=== PATIENT | male | born 1975 | race Caucasian/White ===

== ENCOUNTER 2020-06-04 17:40 | Inpatient (IN) | payer MEDICAID ==
[~2020-06-04] VITALS: Ht 175.3 cm; Wt 101.5 kg
[2020-06-04 18:36] LABS: BASOPHILS % 0.6 % (0.0-2.0); EOSINOPHILS % 1.4 % (0.0-5.0); HEMATOCRIT. 42.8 % (42.0-52.0); HEMOGLOBIN. 15.1 g/dL (14.0-18.0); LYMPHOCYTES % 22.1 % (20.0-50.0); MEAN CORPUSCULAR HEMOGLOBIN 28.6 pg (28.0-32.0); MEAN PLATELET VOLUME 8.6 fl (7.4-10.4); MONOCYTES % 5.7 % (2.0-8.0); NEUTROPHILS % 70.2 % (40.0-76.0); PLATELET 174 x1000/uL (130-400); RED BLOOD CELL COUNT 5.28 mill/uL (4.7-6.1)
[2020-06-04 18:44] LABS: CHLORIDE 103 mEq/L (98-107)
[2020-06-04 18:48] LABS: ETHANOL BLOOD < 10 mg/dL
[2020-06-04 20:18] LABS: CLARITY URINE CLEAR (CLEAR); COLOR URINE YELLOW (YELLOW); KETONES URINE NEGATIVE (NEGATIVE); LEUKOCYTE ESTERASE URINE 2+ (NEGATIVE); NITRITE URINE NEGATIVE (NEGATIVE); OCCULT BLOOD URINE NEGATIVE (NEGATIVE); PROTEIN URINE NEGATIVE (NEGATIVE); SPECIFIC GRAVITY URINE 1.024 (1.005-1.030); UROBILINOGEN URINE 0.2 E.U./dL (0.2-1.0)
[2020-06-04 20:38] LABS: *AMPHETAMINES SCREEN URINE NEGATIVE (NEGATIVE); *BARBITURATES SCREEN URINE NEGATIVE (NEGATIVE); *BENZODIAZEPINES SCREEN URINE NEGATIVE (NEGATIVE)
[2020-06-04 20:39] LABS: *COCAINE SCREEN URINE NEGATIVE (NEGATIVE); CANNABINOID URINE SCREEN NEGATIVE (NEGATIVE); METHADONE URINE SCREEN NEGATIVE (NEGATIVE); OPIATES URINE SCREEN NEGATIVE (NEGATIVE); PHENCYCLIDINE URINE SCREEN NEGATIVE (NEGATIVE)
[2020-06-04] MEDS ORDERED: ASPIRIN 325MG TABLET PO ONE (21:15)
[2020-06-04] MEDS ORDERED: ASPIRIN 600MG SUPP PR ONE (22:00)
[2020-06-05 09:30] VITALS: BP 149/88
[2020-06-05 10:00] VITALS: BP 144/88
[2020-06-05 12:25] VITALS: BP 136/80
[2020-06-05] MEDS: SODIUM CHLORIDE 0.9% 1,000 ML IV SCH ×2 (12:32→23:33)
[2020-06-05 13:07] LABS: BASOPHILS % 0.5 % (0.0-2.0); HEMATOCRIT. 41.8 % (42.0-52.0); HEMOGLOBIN. 14.6 g/dL (14.0-18.0); LYMPHOCYTES % 7.4 % (20.0-50.0); MEAN CORPUSCULAR HEMOGLOBIN 28.1 pg (28.0-32.0); MEAN CORPUSCULAR VOLUME 80.4 fL (80.0-94.0); MEAN PLATELET VOLUME 8.6 fl (7.4-10.4); MONOCYTES % 4.9 % (2.0-8.0); NEUTROPHILS % 87.2 % (40.0-76.0); PLATELET 184 x1000/uL (130-400); RED CELL DISTRIBUTION WIDTH 13.9 % (11.6-14.6)
[2020-06-05 13:12] LABS: CHLORIDE 102 mEq/L (98-107)
[2020-06-05 13:21] LABS: LDL CHOLESTEROL 126 mg/dL (5-100)
[2020-06-05 13:24] LABS: HDL CHOLESTEROL 58 mg/dL (40-59)
[2020-06-05] MEDS ORDERED: ACET-2708 PO (15:26)
[2020-06-05 16:12] VITALS: BP 139/79
[2020-06-05 18:36] LABS: T4 FREE 1.33 ng/dL (0.76-1.46)
[2020-06-05 18:38] LABS: FOLIC ACID (FOLATE) SERUM 17.2 ng/mL (>5.38)
[2020-06-05] MEDS ORDERED: ATORVASTATIN CALCIUM 40MG TABLET PO SCH (21:00)
[2020-06-05] MEDS: ACETAMINOPHEN 650MG/20.3ML UDC NG PRN (21:24)
[2020-06-05] MEDS: ATORVASTATIN CALCIUM 40MG TABLET NG SCH (21:24)
[2020-06-05 21:51] VITALS: BP 141/70
[2020-06-06] VITALS (172 sets, daily range): BP systolic 84–189; BP diastolic 20–136
[2020-06-06] MEDS ORDERED: LORAZEPAM 2MG/ML CPJ IV SCH (07:30)
[2020-06-06] MEDS ORDERED: ENOXAPARIN 30MG/0.3ML SYR SUBCUT SCH (09:00)
[2020-06-06] MEDS ORDERED: CEFEPIME HCL 1000MG/VIAL INJ IM SCH (09:00)
[2020-06-06] MEDS ORDERED: CLOPIDOGREL 75MG TABLET PO SCH (09:00)
[2020-06-06] MEDS: FAMOTIDINE 20MG/2ML VIAL IV SCH ×2 (09:04→20:01)
[2020-06-06 09:59] LABS: BG BASE EXCESS -3.5 mmol/L (-2.0-2.0); BG CARBOXYHEMOGLOBIN 0.3 % (0.5-1.5); BG DEOXYHEMOGLOBIN 0.5 % (0.0-5.0); BG FRACTION INSPIRED OXYGEN 100; BG HCO3 ACT 19.9 mmol/L (22.0-26.0); BG METHEMOGLOBIN 0.1 % (0.0-1.5); BG OXYGEN SATURATION 99.5 % (92.0-98.5); BG OXYHEMOGLOBIN 99.1 % (94.0-97.0); BG PCO2 31.9 mmHg (35.0-45.0); BG PH 7.413 (7.350-7.450); BG PO2 376.3 mmHg (75.0-100.0); BG SAMPLE SITE RIGHT RADIAL; BG TOTAL HEMOGLOBIN 15.5 g/dL (12.0-18.0); BG TOTAL RESPIRATORY RATE 30 b/min; BG VENT MODE VENT - AC
[2020-06-06] MEDS ORDERED: BACITRACIN 50,000 UNITS/VIAL ONE (11:15)
[2020-06-06] MEDS ORDERED: MANNITOL 20% 0 ML IV ONE (11:15)
[2020-06-06] MEDS ORDERED: BACITRACIN 15GM TUBE TOP ONE (11:15)
[2020-06-06] MEDS ORDERED: LEVETIRACETAM 500MG PREMIX 100 ML IV ONE (11:16)
[2020-06-06] MEDS ORDERED: ESMOLOL 2500MG PREMIX 0 ML IV ONE (11:24)
[2020-06-06] MEDS ORDERED: NICARDIPINE 40MG/200ML PREMIX 200 ML IV ONE (11:24)
[2020-06-06] MEDS ORDERED: THROMBIN (BOVINE) 5000 UNITS/VIAL TOP ONE (11:24)
[2020-06-06] MEDS ORDERED: PROPOFOL 200MG/20ML VIAL IV ONE (11:26)
[2020-06-06] MEDS ORDERED: VECURONIUM BROMIDE 10 MG/VIAL IV ONE (11:27)
[2020-06-06] MEDS ORDERED: SODIUM CHLORIDE 0.9% 10ML VIAL ONE ×2 (11:28→11:29)
[2020-06-06] MEDS ORDERED: CEFAZOLIN SODIUM 1000MG/VIAL ONE (11:29)
[2020-06-06] MEDS ORDERED: PHENYLEPHRINE HCL 10 MG/ML 1ML (IV VIAL) IV ONE (11:32)
[2020-06-06] MEDS ORDERED: LABETALOL HCL 5MG/ML VIAL 20ML IV ONE (11:45)
[2020-06-06] MEDS ORDERED: LEVETIRACETAM 500 MG in SODIUM CHLORIDE 0.9% 100 ML IV SCH (11:45)
[2020-06-06] MEDS ORDERED: FENTANYL CITRATE/PF 50MCG/ML 2ML VIAL ONE ×2 (12:59→13:12)
[2020-06-06 13:10] LABS: BG CARBOXYHEMOGLOBIN 0.3 % (0.5-1.5); BG DEOXYHEMOGLOBIN 0.8 % (0.0-5.0); BG FRACTION INSPIRED OXYGEN 100; BG HCO3 ACT 17.6 mmol/L (22.0-26.0); BG METHEMOGLOBIN 0.3 % (0.0-1.5); BG OXYGEN SATURATION 99.2 % (92.0-98.5); BG OXYHEMOGLOBIN 98.6 % (94.0-97.0); BG PCO2 27.2 mmHg (35.0-45.0); BG SAMPLE SITE ALINE; BG TOTAL HEMOGLOBIN 14.5 g/dL (12.0-18.0)
[2020-06-06] MEDS ORDERED: PROPOFOL 10MG/ML 100ML 100 ML IV ONE (13:16)
[2020-06-06] MEDS: SODIUM CHLORIDE 0.9% 1,000 ML IV SCH (13:25)
[2020-06-06] MEDS: DEXT 5%/LACTATED RINGERS 1,000 ML IV SCH (13:30)
[2020-06-06] MEDS ORDERED: NICARDIPINE 100 MG in SODIUM CHLORIDE 0.9% 60 ML IV PRN (13:30)
[2020-06-06] MEDS ORDERED: CEFAZOLIN SODIUM 1000MG/VIAL IV SCH (14:00)
[2020-06-06] MEDS: IPRATROPIUM/ALBUTEROL 0.5-3(2.5)MG/3ML NEB HHN SCH ×2 (14:06→21:06)
[2020-06-06] MEDS: LEVETIRACETAM 500MG PREMIX 100 ML IV SCH ×2 (15:00→20:01)
[2020-06-06] MEDS: MORPHINE SULFATE 4 MG/ML CPJ (NOT FOR IM USE) IV PRN (16:13)
[2020-06-06] MEDS: CEFEPIME 1,000 MG in DEXTROSE 5% WATER 50 ML IV SCH ×2 (16:14→20:02)
[2020-06-06 18:30] LABS: PROTHROMBIN TIME 10.8 sec (9.6-11.0)
[2020-06-06] MEDS: PROPOFOL 10MG/ML 100ML 100 ML IV PRN ×2 (18:59→20:09)
[2020-06-06 19:13] LABS: BASOPHILS % 0.2 % (0.0-2.0); HEMATOCRIT. 49.5 % (42.0-52.0); HEMOGLOBIN. 16.9 g/dL (14.0-18.0); LYMPHOCYTES % 8.7 % (20.0-50.0); MEAN CORPUSCULAR HEMOGLOBIN 28.3 pg (28.0-32.0); MEAN CORPUSCULAR VOLUME 83.1 fL (80.0-94.0); MEAN PLATELET VOLUME 8.9 fl (7.4-10.4); MONOCYTES % 12.9 % (2.0-8.0); NEUTROPHILS % 78.2 % (40.0-76.0); PLATELET 181 x1000/uL (130-400); RED BLOOD CELL COUNT 5.96 mill/uL (4.7-6.1); RED CELL DISTRIBUTION WIDTH 14.5 % (11.6-14.6)
[2020-06-06 19:16] LABS: CHLORIDE 116 mEq/L (98-107)
[2020-06-06] MEDS: ATORVASTATIN CALCIUM 40MG TABLET NG SCH (20:01)
[2020-06-06] MEDS: CEFAZOLIN 1000MG PREMIX 50 ML IV SCH (20:01)
[2020-06-07] VITALS (108 sets, daily range): BP systolic 37–245; BP diastolic 22–121
[2020-06-07] MEDS: IPRATROPIUM/ALBUTEROL 0.5-3(2.5)MG/3ML NEB HHN SCH ×4 (00:52→20:51)
[2020-06-07] MEDS: MORPHINE SULFATE 4 MG/ML CPJ (NOT FOR IM USE) IV PRN (00:57)
[2020-06-07] MEDS: ACETAMINOPHEN 650MG/20.3ML UDC NG PRN (01:35)
[2020-06-07] MEDS ORDERED: SODIUM CHLORIDE 0.9% 1,000 ML IV SCH (03:00)
[2020-06-07] MEDS ORDERED: DOPAMINE 400MG/250ML PREMIX 250 ML IV ONE (03:02)
[2020-06-07] MEDS: SODIUM CHLORIDE 0.9% 1,000 ML IV SCH (03:12)
[2020-06-07] MEDS: DOPAMINE 400MG/250ML PREMIX 250 ML IV PRN ×2 (03:12→08:37)
[2020-06-07] MEDS: CEFAZOLIN 1000MG PREMIX 50 ML IV SCH ×3 (03:26→19:48)
[2020-06-07 05:02] LABS: BASOPHILS % 0.2 % (0.0-2.0); EOSINOPHILS % 0.1 % (0.0-5.0); HEMATOCRIT. 41.4 % (42.0-52.0); HEMOGLOBIN. 14.1 g/dL (14.0-18.0); LYMPHOCYTES % 7.9 % (20.0-50.0); MEAN CORPUSCULAR HEMOGLOBIN 28.2 pg (28.0-32.0); MEAN CORPUSCULAR VOLUME 82.7 fL (80.0-94.0); MEAN PLATELET VOLUME 8.5 fl (7.4-10.4); MONOCYTES % 9.3 % (2.0-8.0); NEUTROPHILS % 82.5 % (40.0-76.0); PLATELET 136 x1000/uL (130-400); RED BLOOD CELL COUNT 5.01 mill/uL (4.7-6.1); RED CELL DISTRIBUTION WIDTH 14.5 % (11.6-14.6)
[2020-06-07 05:12] LABS: CHLORIDE 127 mEq/L (98-107)
[2020-06-07] MEDS: DEXT 5%/LACTATED RINGERS 1,000 ML IV SCH (06:10)
[2020-06-07 08:13] LABS: BG BASE EXCESS -7.6 mmol/L (-2.0-2.0); BG CARBOXYHEMOGLOBIN 0.3 % (0.5-1.5); BG DEOXYHEMOGLOBIN 1.5 % (0.0-5.0); BG HCO3 ACT 18.4 mmol/L (22.0-26.0); BG METHEMOGLOBIN 0.4 % (0.0-1.5); BG OXYGEN SATURATION 98.5 % (92.0-98.5); BG OXYHEMOGLOBIN 97.8 % (94.0-97.0); BG PCO2 39.1 mmHg (35.0-45.0); BG PH 7.291 (7.350-7.450); BG PO2 142.2 mmHg (75.0-100.0); BG SAMPLE SITE ALINE; BG TOTAL HEMOGLOBIN 14.9 g/dL (12.0-18.0); BG VENT MODE VENT - AC
[2020-06-07] MEDS: CEFEPIME 1,000 MG in DEXTROSE 5% WATER 50 ML IV SCH ×2 (08:37→20:52)
[2020-06-07] MEDS: FAMOTIDINE 20MG/2ML VIAL IV SCH ×2 (08:37→20:52)
[2020-06-07] MEDS: LEVETIRACETAM 500MG PREMIX 100 ML IV SCH ×2 (08:37→20:51)
[2020-06-07] MEDS ORDERED: DEXT 5%/0.45% NACL 1000ML 1,000 ML IV SCH (10:00)
[2020-06-07] MEDS ORDERED: POTASSIUM CHLORIDE INJ 40 MEQ in DEXT 5% WATER 250 ML IV SCH (11:00)
[2020-06-07] MEDS ORDERED: LIDOCAINE HCL 1% 20ML VIAL (Pyxis) INJ ONE (13:31)
[2020-06-07 13:41] LABS: BG BASE EXCESS -7.2 mmol/L (-2.0-2.0); BG CARBOXYHEMOGLOBIN 0.7 % (0.5-1.5); BG DEOXYHEMOGLOBIN 2.4 % (0.0-5.0); BG FRACTION INSPIRED OXYGEN 70; BG HCO3 ACT 17.5 mmol/L (22.0-26.0); BG METHEMOGLOBIN 0.4 % (0.0-1.5); BG OXYGEN SATURATION 97.6 % (92.0-98.5); BG OXYHEMOGLOBIN 96.5 % (94.0-97.0); BG PCO2 33.6 mmHg (35.0-45.0); BG PH 7.335 (7.350-7.450); BG PO2 97.9 mmHg (75.0-100.0); BG SAMPLE SITE ALINE; BG TOTAL HEMOGLOBIN 15.5 g/dL (12.0-18.0); BG VENT MODE VENT - AC
[2020-06-07] MEDS: DEXTROSE 5% WATER 1,000 ML IV SCH (14:56)
[2020-06-07] MEDS: NOREPINEPHRINE 32 MG in DEXT 5% WATER 218 ML IV PRN (16:23)
[2020-06-07] MEDS: KCL 20MEQ/100ML PREMIX 100 ML IV SCH ×3 (19:47→23:30)
[2020-06-07] MEDS ORDERED: KCL 20MEQ/100ML PREMIX 100 ML IV ONE ×2 (20:15→22:15)
[2020-06-07] MEDS: DESMOPRESSIN ACETATE 4MCG/ML AMP SUBCUT SCH (20:51)
[2020-06-07] MEDS: ATORVASTATIN CALCIUM 40MG TABLET NG SCH (20:52)
[2020-06-07] MEDS ORDERED: DESMOPRESSIN ACETATE 4MCG/ML AMP SUBCUT SCH ×2 (21:00)
[2020-06-08] VITALS (72 sets, daily range): BP systolic 36–135; BP diastolic 24–80
[2020-06-08 00:25] LABS: CHLORIDE 135 mEq/L (98-107)
[2020-06-08] MEDS ORDERED: KCL 20MEQ/100ML PREMIX 100 ML IV SCH ×3 (01:30→05:30)
[2020-06-08] MEDS: IPRATROPIUM/ALBUTEROL 0.5-3(2.5)MG/3ML NEB HHN SCH ×3 (02:37→13:24)
[2020-06-08] MEDS: DEXTROSE 5% WATER 1,000 ML IV SCH ×2 (04:27→12:47)
[2020-06-08 04:30] LABS: EOSINOPHILS % 0.5 % (0.0-5.0); HEMATOCRIT. 40.7 % (42.0-52.0); LYMPHOCYTES % 12.6 % (20.0-50.0); MEAN CORPUSCULAR HEMOGLOBIN 28.2 pg (28.0-32.0); MEAN CORPUSCULAR VOLUME 81.9 fL (80.0-94.0); MEAN PLATELET VOLUME 8.9 fl (7.4-10.4); MONOCYTES % 6.2 % (2.0-8.0); NEUTROPHILS % 79.7 % (40.0-76.0); PLATELET 200 x1000/uL (130-400); RED BLOOD CELL COUNT 4.97 mill/uL (4.7-6.1); RED CELL DISTRIBUTION WIDTH 14.8 % (11.6-14.6)
[2020-06-08 04:53] LABS: PHOSPHORUS 1.9 mg/dL (2.5-4.9)
[2020-06-08] MEDS: DESMOPRESSIN ACETATE 4MCG/ML AMP SUBCUT SCH (05:50)
[2020-06-08] MEDS: NOREPINEPHRINE 32 MG in DEXT 5% WATER 218 ML IV PRN ×2 (06:49→12:59)
[2020-06-08 09:00] LABS: BG BASE EXCESS -11.1 mmol/L (-2.0-2.0); BG CARBOXYHEMOGLOBIN 0.1 % (0.5-1.5); BG DEOXYHEMOGLOBIN 11.4 % (0.0-5.0); BG FRACTION INSPIRED OXYGEN 100; BG HCO3 ACT 19.2 mmol/L (22.0-26.0); BG METHEMOGLOBIN 0.3 % (0.0-1.5); BG OXYGEN SATURATION 88.6 % (92.0-98.5); BG OXYHEMOGLOBIN 88.2 % (94.0-97.0); BG PCO2 62.2 mmHg (35.0-45.0); BG PH 7.107 (7.350-7.450); BG TOTAL HEMOGLOBIN 14.3 g/dL (12.0-18.0); BG VENT MODE VENT - AC
[2020-06-08] MEDS: LEVETIRACETAM 500MG PREMIX 100 ML IV SCH (09:16)
[2020-06-08] MEDS: CEFEPIME 1,000 MG in DEXTROSE 5% WATER 50 ML IV SCH (09:16)
[2020-06-08] MEDS: FAMOTIDINE 20MG/2ML VIAL IV SCH (09:16)
[2020-06-08] MEDS ORDERED: SODIUM BICARBONATE 8.4% 1 MEQ/ML 50ML SYR IV NR (11:45)
[2020-06-08] MEDS ORDERED: PHENYLEPHRINE 100 MG in DEXT 5% WATER 240 ML IV PRN (12:00)
[2020-06-08] MEDS ORDERED: SODIUM PHOS,M-BASIC-D-BASIC 15 MM in DEXT 5% WATER 245 ML IV NR (12:30)
[2020-06-08 14:08] LABS: BG SAMPLE SITE ALINE
[2020-06-08 14:09] LABS: BG FRACTION INSPIRED OXYGEN 100; BG PEEP (cmH2O) 10 cmH2O; BG TIDAL VOLUME(mL) 700 mL; BG VENT MODE VENT - AC; BG VENT RATE 20 set
[2020-06-08 14:10] LABS: BG BASE EXCESS -9.8 mmol/L (-2.0-2.0); BG HCO3 ACT 17.5 mmol/L (22.0-26.0); BG OXYGEN SATURATION 85.5 % (92.0-98.5); BG PCO2 43.4 mmHg (35.0-45.0); BG PH 7.223 (7.350-7.450); BG TOTAL HEMOGLOBIN 14.3 g/dL (12.0-18.0)
[2020-06-08 14:11] LABS: BG CARBOXYHEMOGLOBIN 0.3 % (0.5-1.5); BG DEOXYHEMOGLOBIN 14.4 % (0.0-5.0); BG METHEMOGLOBIN 0.2 % (0.0-1.5); BG OXYHEMOGLOBIN 85.1 % (94.0-97.0)
[2020-06-08] MEDS ORDERED: MORPHINE SULFATE 100 MG in DEXT 5% WATER 90 ML IV PRN (16:00)
[2020-06-09 04:08] LABS: ANTI-CARDIOLIPIN AB IGA < 9 APL U/mL (0-11); ANTI-CARDIOLIPIN AB IGG < 9 GPL U/mL (0-14); ANTI-CARDIOLIPIN AB IGM < 9 MPL U/mL (0-12)
[2020-06-09 13:09] LABS: ANTI-THROMBIN ACTIVITY 118 % (75-135); DRVVT LA 40.2 sec (0.0-47.0); LUPUS ANTICOAG INTERPRETATION Comment: (.); PROTEIN C FUNCTIONAL 170 % (73-180); PTT-LA 27.9 sec (0.0-51.9)
== END 2020-06-08 17:40 | disposition expired | DRG 710 ==
LOC: ER 17:40 → 6WST 06-05 00:22 → ENRESERV 06-05 05:41 → MICUSO 06-06 06:57
PROVIDERS: ADMIT Internal Medicine; ATTEND Internal Medicine
PROC: 5A1945Z Respiratory Ventilation, 24-96 Consecutive Hours (ICD-10-PCS; principal; 2020-06-06)
PROC: 0BH17EZ Insertion of Endotracheal Airway into Trachea, Via Natural or Artificial Opening (ICD-10-PCS; 2020-06-06)
PROC: 00H632Z Insertion of Monitoring Device into Cerebral Ventricle, Percutaneous Approach (ICD-10-PCS; 2020-06-06)
PROC: 4A103BD Monitoring of Intracranial Pressure, Percutaneous Approach (ICD-10-PCS; 2020-06-06)
PROC: 00U207Z Supplement Dura Mater with Autologous Tissue Substitute, Open Approach (ICD-10-PCS; 2020-06-06)
PROC: 00N00ZZ Release Brain, Open Approach (ICD-10-PCS; 2020-06-06)
PROC: 0NS00ZZ Reposition Skull, Open Approach (ICD-10-PCS; 2020-06-06)
PROC: 4A103BD Monitoring of Intracranial Pressure, Percutaneous Approach (ICD-10-PCS; 2020-06-06)
PROC: 02HV33Z Insertion of Infusion Device into Superior Vena Cava, Percutaneous Approach (ICD-10-PCS; 2020-06-07)
PROC: B548ZZA Ultrasonography of Superior Vena Cava, Guidance (ICD-10-PCS; 2020-06-07)
DX: A41.9 Sepsis, unspecified organism (principal); I63.522 Cerebral infarction due to unspecified occlusion or stenosis of left anterior cerebral artery; I60.9 Nontraumatic subarachnoid hemorrhage, unspecified; G93.5 Compression of brain; G93.6 Cerebral edema; J96.00 Acute respiratory failure, unspecified whether with hypoxia or hypercapnia; G81.91 Hemiplegia, unspecified affecting right dominant side; E78.5 Hyperlipidemia, unspecified; R47.01 Aphasia; I10 Essential (primary) hypertension; M48.02 Spinal stenosis, cervical region; R13.10 Dysphagia, unspecified; R53.81 Other malaise; R91.1 Solitary pulmonary nodule; M25.78 Osteophyte, vertebrae; E78.00 Pure hypercholesterolemia, unspecified; R41.4 Neurologic neglect syndrome; E87.0 Hyperosmolality and hypernatremia; R35.8 Other polyuria; E87.6 Hypokalemia; I63.512 Cerebral infarction due to unspecified occlusion or stenosis of left middle cerebral artery; E66.01 Morbid (severe) obesity due to excess calories; E83.39 Other disorders of phosphorus metabolism; Z20.828 Contact with and (suspected) exposure to other viral communicable diseases; N17.0 Acute kidney failure with tubular necrosis; E87.2 Acidosis; Z66 Do not resuscitate; J98.11 Atelectasis; Z82.49 Family history of ischemic heart disease and other diseases of the circulatory system; Z78.1 Physical restraint status; Z79.899 Other long term (current) drug therapy; Z68.33 Body mass index [BMI] 33.0-33.9, adult
CPT/HCPCS: 36415; 36600; 70496; 70498; 70551; 71045; 76937; 80048; 80053; 80061; 80305; 80320; 81003; 81400; 81403; 81407; 81479; 82140; 82375; 82607; 82746; 82805; 82962; 83036; 83735; 83880; 83930; 83935; 84100; 84132; 84295; 84439; 84443; 84478; 84481; 84484; 85025; 85300; 85303; 85306; 85613; 85651; 85732; 86147; 86850; 86900; 87426; 92610; 93005; 93306; 94003; 94640; 97530; 99285; C1725; J0690; J0692; J1265; J1953; J2060; J2270; J2370; J2597; J2704; J3010; J3480; J3490; J7030; J7050; J7060; J7070; J7121; G0480